=== PATIENT | female | born 1940 | race Caucasian/White ===

== ENCOUNTER → 2018-12-18 | Outpatient (CLI) | payer MEDICARE ==
[~2018-12-18] MED LIST: AMLO5; LOSARTAN POTAS100 MG; LOSHYD100
[2018-12-18 18:02] LABS: Appearance, Urine Clear (Clear); Bilirubin, Urine Neg (Neg); Blood, Urine 2+ (Neg); Color, Urine Yellow (P-Yellow); Glucose Qualitative, Urine Neg (Neg); Ketones, Urine Neg (Neg); Leukocyte Esterase, Urine Neg (Neg); Nitrite, Urine Neg (Neg); Protein, Urine Neg (Neg); Urobilinogen, Urine NORM (Normal)
[2018-12-18 18:23] LABS: Bacteria Not Seen /hpf; Red Blood Cells, Urine 0-2 /hpf (0-2); Squamous Epithelial Cells Rare /hpf (Few); White Blood Cells, Urine Not Seen /hpf (0-5)
== END | disposition home or self-care (01) ==
LOC: LAB 16:27 → LAB SHORT 16:27
PROVIDERS: Nurse Practitioner Family
DX: F41.8 Other specified anxiety disorders (principal)
CPT/HCPCS: 81001

== ENCOUNTER → 2020-05-01 | Outpatient (CLI) | payer MEDICARE | END | disposition home or self-care (01) | LOC: PLD 07:36 → LAB SHORT 07:36 | DX: D48.5 Neoplasm of uncertain behavior of skin (principal) | CPT/HCPCS: 88305 ==

== ENCOUNTER → 2021-03-10 | Outpatient (CLI) | payer MEDICARE ==
[~2021-03-10] MED LIST changes: +LOSA50 PO; -LOSARTAN POTAS100 MG; +Roxicodone5 MG PO
[2021-03-12 08:59] LABS: Stool Occult Bld Immuno 1 Negative (NEGATIVE)
== END | disposition home or self-care (01) ==
LOC: LAB SHORT 13:47 → LAB 13:47 → LAB SHORT 03-11 13:47
PROVIDERS: Internal Medicine Gastroenterology
DX: Z12.11 Encounter for screening for malignant neoplasm of colon (principal)
CPT/HCPCS: 82274

== ENCOUNTER 2021-03-18 22:59 | Emergency (ER) | payer MEDICARE ==
[~2021-03-18] VITALS: Ht 152.4 cm; Wt 77.1 kg
[~2021-03-18 22:59] MED LIST changes: -Roxicodone5 MG PO
[2021-03-19] MEDS ORDERED: Roxicodone5 MG PO (01:28)
== END 2021-03-19 01:33 | disposition home or self-care (01) ==
LOC: ER 22:59
DX: S82.142A Displaced bicondylar fracture of left tibia, initial encounter for closed fracture (principal); X50.1XXA Overexertion from prolonged static or awkward postures, initial encounter; W01.0XXA Fall on same level from slipping, tripping and stumbling without subsequent striking against object, initial encounter
CPT/HCPCS: 29505; 73560-LT; 73700; 99283-25; A9270

== ENCOUNTER 2021-03-22 09:11 | Day surgery (SDC) | payer MEDICARE ==
[~2021-03-22] VITALS: Ht 152.4 cm; Wt 77.2 kg
[~2021-03-22 09:11] MED LIST changes: +Roxicodone5 MG PO
--- NOTE | 2021-03-22 10:22 | NUR ---
03/22/21 1022 Maria Isabel Morales VANCOMYCIN 1GM STARTED AT 1022
--- NOTE | 2021-03-22 15:08 | NUR ---
03/22/21 2274 ALISHA TEMPLE PT DENIED PAIN. PT DID NOT WEAR SHOES TO FACILITY SHE STATES, I NOTED NO SHOES IN HER BELONGINGS. ONLY SOCKS AND A DRESS. NO OTHER ITEMS WERE NOTED.
== END 2021-03-22 14:41 | disposition home or self-care (01) ==
LOC: ORSCSDS 09:11
PROVIDERS: Orthopaedic Surgery
PROC: 0QSH04Z Reposition Left Tibia with Internal Fixation Device, Open Approach (ICD-10-PCS; principal; 2021-03-22 10:30)
PROC: 0SJD4ZZ Inspection of Left Knee Joint, Percutaneous Endoscopic Approach (ICD-10-PCS; principal; 2021-03-22 10:30)
PROC: 0SBD4ZZ Excision of Left Knee Joint, Percutaneous Endoscopic Approach (ICD-10-PCS; principal; 2021-03-22 10:30)
DX: S82.122A Displaced fracture of lateral condyle of left tibia, initial encounter for closed fracture (principal); I10 Essential (primary) hypertension; Z79.899 Other long term (current) drug therapy
CPT/HCPCS: C1713; C1769; J0171; J1100; J1885; J2250; J2405; J2704; J3010; J3370; J7120

== ENCOUNTER 2022-03-18 21:35 | Emergency (ER) | payer MEDICARE ==
[~2022-03-18] VITALS: Ht 152.4 cm; Wt 78.5 kg
[2022-03-19] MEDS ORDERED: Norco 5-325 Ta1 EACH PO (11:43)
== END 2022-03-19 00:38 | disposition left against medical advice (07) ==
LOC: ER 21:35
DX: M79.603 Pain in arm, unspecified (principal); Z53.21 Procedure and treatment not carried out due to patient leaving prior to being seen by health care provider
CPT/HCPCS: 73110

== ENCOUNTER 2022-03-19 09:38 | Emergency (ER) | payer MEDICARE ==
[~2022-03-19] VITALS: Ht 152.4 cm; Wt 78.0 kg
[2022-03-19] MEDS ORDERED: Norco 5-325 Ta1 EACH PO (11:43)
== END 2022-03-19 12:18 | disposition home or self-care (01) ==
LOC: ER 09:38
DX: S52.591A Other fractures of lower end of right radius, initial encounter for closed fracture (principal); W19.XXXA Unspecified fall, initial encounter; Z88.0 Allergy status to penicillin; Z88.2 Allergy status to sulfonamides; Z88.8 Allergy status to other drugs, medicaments and biological substances; Z79.899 Other long term (current) drug therapy
CPT/HCPCS: 73100; J3010

== ENCOUNTER 2022-03-28 11:51 | Day surgery (SDC) | payer OTHER, MEDICARE ==
[~2022-03-28] VITALS: Ht 152.4 cm; Wt 76.7 kg
[~2022-03-28 11:51] MED LIST changes: +Norco 5-325 Ta1 EACH PO
--- NOTE | 2022-03-28 14:02 | NUR ---
03/28/22 1402 Sharmin Crandall 0.05MG OF EPI ADDED TO 10MLS OF ROPIVACAINE 0.5% TO CREATE A LOCAL SOLUTION OF ROPIVACAINE 0.5% WITH EPI 1:200,000. LOCAL POURED ONTO STERILE FIELD FOR USE DURING CASE.
--- NOTE | 2022-03-28 15:04 | NUR ---
03/28/22 1504 ALISHA TEMPLE GAVE 25MCG FENTANYL IV PUSH FOR PAIN 02/20. BP 126/73 PT ALERT AND ORIENTED.
--- NOTE | 2022-03-28 15:34 | NUR ---
03/28/22 6834 ALISHA TEMPLE UNABLE TO GIVE PO PAIN MEDICATION SINCE SHE HAD AN OXYCONTIN JUST PRIOR TO SURGERY AT 1245. DAUGHTER STATES THAT THEY HAVE THE RX AND WILL FILL IT PRIOR TO GOING HOME. THEY ALSO HAVE EXTRA PAIN MEDICATION FROM PRIOR TO SURGERY AT HOME. PAIN IS STILL 5/10. PT AND DAUGHTER AGREE THAT SHE SHOULD HAVE ADDITIONAL IV MEDICATION NOW
== END 2022-03-28 16:08 | disposition home or self-care (01) ==
LOC: ORSCSDS 11:51
PROVIDERS: Orthopaedic Surgery
PROC: 0PSH04Z Reposition Right Radius with Internal Fixation Device, Open Approach (ICD-10-PCS; principal; 2022-03-28 13:00)
DX: S52.571A Other intraarticular fracture of lower end of right radius, initial encounter for closed fracture (principal); W01.0XXA Fall on same level from slipping, tripping and stumbling without subsequent striking against object, initial encounter; I10 Essential (primary) hypertension; Z79.899 Other long term (current) drug therapy; E66.9 Obesity, unspecified; Z68.33 Body mass index [BMI] 33.0-33.9, adult
CPT/HCPCS: A9270; C1713; J0171; J1100; J1885; J2405; J2704; J2795; J3010; J3370; J7120

== ENCOUNTER 2023-08-20 15:35 | Emergency (ER) | payer MEDICARE ==
[~2023-08-20] VITALS: Ht 152.4 cm; Wt 77.1 kg
[2023-08-20 17:30] LABS: BASOPHILS ABSOLUTE AUTO 0.08 K/mm3 (0.00-0.23); BASOPHILS PERCENT AUTO 1 % (0-2); EOSINOPHILS ABSOLUTE AUTO 0.08 K/mm3 (0.00-0.68); EOSINOPHILS PERCENT AUTO 1 % (0-6); Hematocrit 44.5 % (33.0-51.0); Hemoglobin 14.2 g/dL (11.5-16.0); IMMATURE GRAN ABSOLUTE AUTO 0.05 K/mm3 (0.00-0.10); IMMATURE GRAN PERCENT AUTO 1 % (0-1); LYMPHOCYTES PERCENT AUTO 18 % (21-46); MONOCYTES ABSOLUTE AUTO 0.61 K/mm3 (0.16-1.47); MONOCYTES PERCENT AUTO 6 % (4-13); Mean Corpuscular HGB 28.4 pg (26.0-34.0); Mean Corpuscular HGB Conc 31.9 g/dL (31.5-36.5); Mean Corpuscular Volume 89 fL (80-100); NEUTROPHILS ABSOLUTE AUTO 7.43 K/mm3 (1.96-9.15); NEUTROPHILS PERCENT AUTO 74 % (41-73); Platelet Count 184 K/mm3 (150-400); RDW Coefficient Variation 13.8 % (11.7-14.2); RDW Standard Deviation 44.9 fL (35.1-46.3); White Blood Cell Count 10.05 K/mm3 (4.00-11.30)
[2023-08-20 17:52] LABS: Calcium, Blood 8.7 mg/dL (8.5-10.1); Creatinine, Blood 0.73 mg/dL (0.40-1.00); Potassium, Blood 4.2 mmol/L (3.5-5.5)
[2023-08-20] MEDS ORDERED: OXYB5 PO (18:05)
[2023-08-20] MEDS ORDERED: Amiodarone HCl200 MG PO (18:05)
[2023-08-20] MEDS ORDERED: XARELTO20 M1 PO (18:05)
[2023-08-20 23:30] VITALS: BP 109/68
== END 2023-08-20 23:45 | disposition home or self-care (01) ==
LOC: ER 15:35
PROVIDERS: Student in an Organized Health Care Education/Training Program
DX: S52.592A Other fractures of lower end of left radius, initial encounter for closed fracture (principal); S52.612A Displaced fracture of left ulna styloid process, initial encounter for closed fracture; S06.5X9A Traumatic subdural hemorrhage with loss of consciousness of unspecified duration, initial encounter; W10.9XXA Fall (on) (from) unspecified stairs and steps, initial encounter; R55 Syncope and collapse; T45.515A Adverse effect of anticoagulants, initial encounter; I10 Essential (primary) hypertension; I48.91 Unspecified atrial fibrillation; Z79.01 Long term (current) use of anticoagulants; Z88.0 Allergy status to penicillin; Z88.2 Allergy status to sulfonamides; Z88.8 Allergy status to other drugs, medicaments and biological substances; Z79.899 Other long term (current) drug therapy
CPT/HCPCS: 70450; 72125; 73090; 73110; 80048; 85025; 93005; 93010; 96374-59; 96375-59; 96376-59; 99152; 99153; 99285-25; A9270; J1170; J2405; J2704; J7030; J7168

== ENCOUNTER 2023-09-04 08:52 | Day surgery (SDC) | payer MEDICARE ==
[~2023-09-04] VITALS: Ht 152.4 cm; Wt 78.7 kg
[~2023-09-04 08:52] MED LIST changes: +AMLO5 PO; +Amiodarone HCl200 MG PO; +OXYB5 PO; +XARELTO20 M1 PO
[2023-09-04] MEDS ORDERED: AMIODARONE HCL200 MG PO (09:18)
[2023-09-04] MEDS ORDERED: XARELTO20 MG PO (09:19)
[2023-09-04] MEDS ORDERED: Norco 5-325 Ta1 EACH PO (09:27)
--- NOTE | 2023-09-04 11:11 | NUR ---
09/04/23 1110 Sharmin Crandall A PILLOW UNDER HEAD AND KNEES, RIGHT ARM SECURED ON PADDED ARM BOARD.
--- NOTE | 2023-09-04 12:39 | NUR ---
09/04/23 1239 Gillian Whitfield PT O2 INCREASES WITH ENCOURAGMENT
[2023-09-04 13:53] VITALS: BP 148/93
--- NOTE | 2023-09-04 13:55 | NUR ---
09/04/23 3867 Gillian Whitfield [place] DAUGHTER AT BEDSIDE. PT NEEDING ENCOURAGEMENT DEEP BREATHING D/T PAIN MEDICATION.
== END 2023-09-04 14:27 | disposition home or self-care (01) ==
LOC: ORSCSDS 08:52
PROVIDERS: Orthopaedic Surgery
PROC: 0PSJ04Z Reposition Left Radius with Internal Fixation Device, Open Approach (ICD-10-PCS; principal; 2023-09-04 11:00)
PROC: 01N50ZZ Release Median Nerve, Open Approach (ICD-10-PCS; principal; 2023-09-04 11:00)
DX: S52.502A Unspecified fracture of the lower end of left radius, initial encounter for closed fracture (principal); G56.01 Carpal tunnel syndrome, right upper limb; W18.30XA Fall on same level, unspecified, initial encounter; I48.91 Unspecified atrial fibrillation; Z79.01 Long term (current) use of anticoagulants; I10 Essential (primary) hypertension; Z79.899 Other long term (current) drug therapy
CPT/HCPCS: A9270; C1713; J0171; J0690; J1100; J1170; J2405; J2704; J2795; J3010; J7120

== ENCOUNTER 2024-10-08 08:47 | Day surgery (SDC) | payer MEDICARE ==
[~2024-10-08] VITALS: Ht 180.3 cm; Wt 66.8 kg
[~2024-10-08 08:47] MED LIST changes: +AMIODARONE HCL200 MG PO; +Balanced Salt Epinephrine Irrigation Solution 500 mL IR SCH; +Diazepam 2 MG Tab PO PRN; +Lidocaine HCl/Pf 1% 5 ML VIAL XX SCH; +Moxifloxacin HCL 0.5 MG/0.1 ML 0.4MLSYR LEFTEYE SCH; +Ondansetron 4 MG SoluTab MM PRN; +PHENYLEPHRINE\\TROPICAMIDE\\TETRACAINE OPHTHALMIC DILATING SOLN LEFTEYE PRN; +Povidone-Iodine 450 DROP/30 ML Solution LEFTEYE SCH; +Povidone-Iodine 450 DROP/30 ML Solution ONE; +Tetracaine HCl/Pf 0.5% Opth Soln 4 ml ONE; +XARELTO20 MG PO; +diazePAM 5 MG,diazePAM 2 MG PO SCH
[2024-10-08] MEDS ORDERED: Tetracaine HCl 0.5% Opth Soln 15 ml ONE (09:08)
[2024-10-08] MEDS ORDERED: Diazepam 5 MG Tab ONE (09:13)
[2024-10-08] MEDS ORDERED: Diazepam 2 MG Tab ONE (09:13)
[2024-10-08] MEDS ORDERED: PLAVIX75 MG PO (10:00)
--- NOTE | 2024-10-08 10:08 | NUR ---
10/08/24 1008 Jw Ramirez CALL LIGHT WITHIN REACH. TETRACAINE IN LEFT EYE AT 0959 AND PLEDGETT IN AT 1000. PT ANXIETY LEVEL 5/10 AT 0954
[2024-10-08] MEDS ORDERED: Ondansetron HCl 2 MG / ML 2ML Vial ONE (10:47)
[2024-10-08] MEDS ORDERED: Tetracaine HCl/Pf 0.5% Opth Soln 4 ml ONE (10:56)
[2024-10-08 11:17] VITALS: BP 128/63
== END 2024-10-08 11:38 | disposition home or self-care (01) ==
LOC: ORSCSDS 08:47
PROVIDERS: Student in an Organized Health Care Education/Training Program
PROC: 08RK3JZ Replacement of Left Lens with Synthetic Substitute, Percutaneous Approach (ICD-10-PCS; principal; 2024-10-08 10:30)
DX: H25.813 Combined forms of age-related cataract, bilateral (principal); I10 Essential (primary) hypertension; K21.9 Gastro-esophageal reflux disease without esophagitis; E78.5 Hyperlipidemia, unspecified; I48.0 Paroxysmal atrial fibrillation; F03.A0 Unspecified dementia, mild, without behavioral disturbance, psychotic disturbance, mood disturbance, and anxiety; Z79.02 Long term (current) use of antithrombotics/antiplatelets; Z79.899 Other long term (current) drug therapy
CPT/HCPCS: A9270; J2405; V2632

== ENCOUNTER 2024-10-15 08:48 | Day surgery (SDC) | payer MEDICARE ==
[~2024-10-15] VITALS: Ht 149.9 cm; Wt 67.8 kg
[~2024-10-15 08:48] MED LIST changes: -Diazepam 2 MG Tab PO PRN; +Lidocaine HCl/Pf 1% 5 ML VIAL ONE; -Moxifloxacin HCL 0.5 MG/0.1 ML 0.4MLSYR LEFTEYE SCH; +Moxifloxacin HCL 0.5 MG/0.1 ML 0.4MLSYR RIGHTEYE SCH; +NS 500 ML IV ONE; -Ondansetron 4 MG SoluTab MM PRN; -PHENYLEPHRINE\\TROPICAMIDE\\TETRACAINE OPHTHALMIC DILATING SOLN LEFTEYE PRN; +PHENYLEPHRINE\\TROPICAMIDE\\TETRACAINE OPHTHALMIC DILATING SOLN RIGHTEYE PRN; +PLAVIX75 MG PO; -Povidone-Iodine 450 DROP/30 ML Solution LEFTEYE SCH; +Povidone-Iodine 450 DROP/30 ML Solution RIGHTEYE SCH; -diazePAM 5 MG,diazePAM 2 MG PO SCH
[2024-10-15] MEDS ORDERED: NS 500 ML IV ONE (09:05)
--- NOTE | 2024-10-15 09:06 | NUR ---
10/15/24 0906 Jw Ramirez CALL LIGHT WITHIN REACH. TETRACAINE IN RIGHT EYE AT 0900 AND PLEDGETT IN AT 0902
[2024-10-15] MEDS ORDERED: FentaNYL Citrate 50 MCG/ML 2 ML Injection ONE (09:42)
[2024-10-15] MEDS ORDERED: Midazolam HCl 1MG / ML 2ML Vial ONE (09:42)
[2024-10-15 10:01] VITALS: BP 115/72
== END 2024-10-15 10:14 | disposition home or self-care (01) ==
LOC: ORSCSDS 08:48
PROVIDERS: Student in an Organized Health Care Education/Training Program
PROC: 08RJ3JZ Replacement of Right Lens with Synthetic Substitute, Percutaneous Approach (ICD-10-PCS; principal; 2024-10-15 10:30)
DX: H25.811 Combined forms of age-related cataract, right eye (principal); Z96.1 Presence of intraocular lens; I10 Essential (primary) hypertension; I48.0 Paroxysmal atrial fibrillation; Z79.02 Long term (current) use of antithrombotics/antiplatelets; Z79.899 Other long term (current) drug therapy
CPT/HCPCS: J2003; J2250; J3010; J7040; V2632